=== PATIENT | female | born 1990 | race Caucasian/White ===

== ENCOUNTER 2021-09-23 08:32 | Inpatient (IN) | payer OTHER ==
[2021-09-25] MEDS ORDERED: LIDOCAINE 0.5% (PF) 5 MG/ML (50 ML SDV) SQ PRN (06:31)
[2021-09-25] MEDS ORDERED: TERBUTALINE 1 MG/ML VIAL SQ PRN (06:31)
[2021-09-25] MEDS ORDERED: CARBOPROST TROMETHAMINE 250 MCG/ML 1 ML AMP IM PRN (06:31)
[2021-09-25] MEDS ORDERED: OXYTOCIN 10 UNIT/ML 1 ML VIAL IM PRN (06:31)
[2021-09-25] MEDS ORDERED: METHYLERGONOVINE 0.2 MG/ML 1 ML AMP IM PRN (06:31)
[2021-09-25] MEDS ORDERED: OXYTOCIN 30 UNITS/500 ML NS 30 UNIT in SALINE 1 500ML.BAG IV SCH ×2 (06:45→15:45)
[2021-09-25] MEDS ORDERED: LACTATED RINGERS 1,000 ML IV SCH (06:45)
[2021-09-25] MEDS: LACTATED RINGERS 1,000 ML IV SCH ×2 (06:53→15:52)
[2021-09-25 07:45] LABS: Basophils % (A) 0 %; Eosinophils # (A) 0.1 k/uL (0-0.7); Eosinophils % (A) 1 %; HCT 38.3 % (34.0-46.0); HGB 12.9 gm/dL (11.4-16.0); Lymphocytes # (A) 3.1 k/uL (1.0-4.8); Lymphocytes % (A) 26 %; MCH 32.6 pg (25.0-35.0); MCHC 33.8 g/dL (31.0-37.0); MCV 96.5 fL (80.0-100.0); Mean Platelet Volume 8.7; Monocytes # (A) 0.5 k/uL (0-1.0); Monocytes % (A) 4 %; Neutrophils # (A) 7.7 k/uL (1.3-7.7); Neutrophils % (A) 66 %; Platelet Count 212 k/uL (150-450); RBC 3.97 m/uL (3.80-5.40); RDW 13.1 % (11.5-15.5); WBC 11.6 k/uL (3.8-10.6)
[2021-09-25] MEDS ORDERED: BUTORPHANOL 1 MG/ML 1 ML VIAL IV PRN (08:30)
--- NOTE | 2021-09-25 08:35 | P.HPOB ---
History of Present Illness H&P Date: 09/25/21 Chief Complaint: 40-5/7 weeks, induction of labor The patient is a 30-year-old 2 para 1001 who presents at 40-5/7 weeks as established by last menstrual period and confirmed by early ultrasound. She presents for postdates induction of labor with all signs reassuring. Her has been entirely uncomplicated. She presented to our office at approximately 26 weeks having had her early care in [facility] where she had been working. She has had no complications aside from jose juan coated at the end of August. testing since her due date and since: Have been reassuring. On labor and delivery, there is a category 1 heart rate tracing. Group B strep status is negative. Obstetrical history: 2 para 1001 with 1 term vaginal delivery without complications. Current statistics are listed in history present illness. EDC of 09/20/2021 was established by last menstrual period and confirmed by first trimester ultrasound. Laboratory workup demonstrates a blood type of O+ with a negative antibody screen. Rubella status is immune. The remainder of laboratory workup was within normal limits. Early Glucola as well as second trimester Glucola were within normal limits. Group B strep status is negative. Gynecologic history: Unremarkable with no history of any infections to include STDs. Review of Systems Review of systems is confined to history of present illness. Past Medical History Past Medical History: No Reported History History of Any Multi-Drug Resistant Organisms: None Reported Additional Past Surgical History / Comment(s): [place] teeth Past Anesthesia/Blood Transfusion Reactions: No Reported Reaction Past Psychological History: No Psychological Hx Reported Smoking Status: Never smoker Past Alcohol Use History: None Reported Past Drug Use History: None Reported - Past Family History Mother Additional Family Medical History / Comment(s): VonWillbran syndrome cousin Medications and Allergies Home Medications Medication Instructions Recorded Confirmed Type No Known Home Medications 09/25/21 09/25/21 History Allergies Allergy/AdvReac Type Severity Reaction Status Date / Time No Known Allergies Allergy Verified 09/25/21 06:31 Exam Vital Signs Temp Pulse Resp BP Pulse Ox 09/25/21 06:37 96.7 F L 90 16 127/75 98 Intake and Output 09/24/21 09/25/21 09/25/21 22:59 06:59 14:59 Other: Weight 92.079 kg In general, this a well-developed, well-nourished white female in no acute distress. Her heart has a regular rhythm and rate without murmur. Her lungs are clear to auscultation bilaterally in all [place]. Her abdomen is gravid, nondistended, has normal active bowel sounds, soft, nontender, and without any palpable masses aside from uterine fundus. Her extremities are without any c yanosis, clubbing, or edema and are nontender to palpation bilaterally. Digital cervical examination on straights her sugars to be 3 cm dilated, 70% effaced, the vertex in presentation at -1 station. Artificial rupture of membranes is carried out demonstrating clear fluid. Results Result Diagrams: 09/25/21 06:53 Abnormal Lab Results - Last 24 Hours (Table) 09/25/21 Range/Units 06:53 WBC 11.6 H (3.8-10.6) k/uL Assessment and Plan (1) Post-dates Current Visit: Yes Status: Acute Code(s): O48.0 - POST-TERM SNOMED Code(s): 13500922 Plan: The patient is admitted for Pitocin induction of labor which has been started. She has undergone artificial rupture of membranes and she will have close maternal and surveillance and expectant management will be practiced. She is a good candidate for either IV or epidural analgesia, whichever she may choose.
[2021-09-25] MEDS ORDERED: ROPIVACAINE 100 MG, fentaNYL (PF). 200 MCG in SODIUM CHLORIDE 0.9% 76 ML EPIDURAL ONE (12:13)
[2021-09-25] MEDS ORDERED: diphenhydrAMINE 25 MG CAP PO PRN (15:39)
[2021-09-25] MEDS ORDERED: diphenhydrAMINE 50 MG/ML 1 ML VIAL IVP PRN ×2 (15:39)
[2021-09-25] MEDS ORDERED: HYDROcodone/APAP 7.5-325MG 1 EACH TAB PO PRN (15:39)
[2021-09-25] MEDS ORDERED: LANOLIN CREAM 5 GM TUBE TOPICAL PRN (15:39)
[2021-09-25] MEDS ORDERED: diphenhydrAMINE 50 MG CAP PO PRN (15:39)
[2021-09-25] MEDS ORDERED: ZOLPIDEM 5 MG TAB PO PRN (15:39)
[2021-09-25] MEDS ORDERED: HYDROCORTISONE 2.5% RECTAL CREAM 30 GM TUBE RECTAL PRN (15:39)
[2021-09-25] MEDS ORDERED: BENZOCAINE/MENTHOL SPRAY 1 GM/SPRAY AEROSOL TOPICAL PRN (15:39)
[2021-09-25] MEDS ORDERED: HYDROcodone/APAP 5-325MG 1 EACH TAB PO PRN (15:39)
[2021-09-25] MEDS ORDERED: SIMETHICONE 80 MG CHEWABLE PO PRN (15:39)
--- NOTE | 2021-09-25 15:43 | P.PROBDLV ---
Vaginal Delivery Note - . Vaginal Delivery Note: The patient is a 30-year-old 2 para 1001 admitted at 40-5/7 weeks by good dating parameters. She is admitted for postdates induction of labor with all signs reassuring, category 1 heart rate tracing. Her has been uncomplicated though the first portion of it until approximately 26 weeks was under the care of in [facility] where she has been working. Her was otherwise uncomplicated though she did contract Covid in August. Anten atal testing has been reassuring since then and following her due date. On labor and delivery, she had Pitocin started followed by artificial rupture of membranes for clear fluid. She made progress to the active phase of labor and had an epidural catheter placed for analgesia. She then progressed fairly quickly through the active phase of labor to complete and pushed over the course of approximately 1 hour to a normal spontaneous vaginal delivery of a viable 9 lbs. 0 oz. baby boy with Apgars of 9 at 1 minute and 10 at 5 minutes delivered in the right occiput anterior position. The placenta was delivered spontaneously, intact, and grossly normal with a grossly normal three-vessel cord inserted approximate 2 cm from the margin of the placental disc. There was a partial third-degree laceration with a fracture of the anterior portion of the capsule of the internal anal sphincter which was repaired in standard fashion. The sphincter was repaired with interrupted [id number] stitches of 2-0 Vicryl and the remainder of the repair performed in standard fashion using 3-0 chromic catgut without difficulty. Estimated blood loss for the case was approximate 300 mL. There were no complications. All sponge, instrument, and needle counts were correct. Both mother and infant are resting comfortably in recovery.
[2021-09-25] MEDS: SENNOSIDES-DOCUSATE SODIUM 1 EACH TAB PO SCH (20:10)
[2021-09-25] MEDS: ACETAMINOPHEN TAB 325 MG TAB PO PRN (20:10)
[2021-09-25] MEDS: IBUPROFEN 600 MG TAB PO PRN (22:36)
[2021-09-26] MEDS: ACETAMINOPHEN TAB 325 MG TAB PO PRN ×2 (03:28→11:30)
[2021-09-26] MEDS: SENNOSIDES-DOCUSATE SODIUM 1 EACH TAB PO SCH (07:59)
[2021-09-26] MEDS: IBUPROFEN 600 MG TAB PO PRN ×2 (07:59→16:05)
[2021-09-26 08:22] LABS: Basophils % (A) 0 %; Eosinophils # (A) 0.1 k/uL (0-0.7); Eosinophils % (A) 1 %; HCT 36.8 % (34.0-46.0); HGB 12.3 gm/dL (11.4-16.0); Lymphocytes # (A) 2.5 k/uL (1.0-4.8); Lymphocytes % (A) 20 %; MCH 32.5 pg (25.0-35.0); MCHC 33.4 g/dL (31.0-37.0); MCV 97.5 fL (80.0-100.0); Monocytes # (A) 0.6 k/uL (0-1.0); Monocytes % (A) 4 %; Neutrophils # (A) 9.2 k/uL (1.3-7.7); Neutrophils % (A) 73 %; Platelet Count 204 k/uL (150-450); RBC 3.78 m/uL (3.80-5.40); WBC 12.6 k/uL (3.8-10.6)
--- NOTE | 2021-09-26 08:43 | P.DS ---
Providers Date of admission: 09/25/21 06:26 Expected date of discharge: 09/26/21 Attending physician: Sim Albert Primary care physician: Stated None - Discharge Diagnosis(es) (1) Post-dates Current Visit: Yes Status: Acute (2) Normal spontaneous vaginal delivery Current Visit: Yes Status: Acute Hospital Course: The patient is a 30-year-old 2 para 1001 admitted at 40-5/7 weeks by good dating parameters perches admitted for postdates induction of labor with all signs reassuring. Her was uncomplicated and group B strep status is negative. On labor and delivery, she had Pitocin started followed by artificial rupture of membranes. She had an epidural catheter placed at the onset of the active phase of labor. She made fairly rapid progress to the active phase of labor to complete and then pushed to a normal spontaneous vaginal delivery of a viable 9 lbs. 0 oz. baby boy with Apgars of 9 at 1 minute and 10 at 5 minutes. Her course was unremarkable with vital signs being stable and her temperature was afebrile throughout. She was deemed stable for discharge on day 1 and was discharged home to follow-up in the office in 6 weeks' time routinely. Discharge instructions included calling for any significantly increased bleeding or foul-smelling lochia, significantly increased fever or abdominal pain, perineal complaints, breast complaints, or anything else that concerned her. She was additionally instructed to have no thing in the vagina for at least 6 weeks time to include intercourse. She understood her instructions and agrees to follow up as noted above. Discharge medications included continued vitamins as she has opted to breast-feed as well as [id number]-[id number] analgesic pain medications. Maternal blood type is O+ and rubella status is immune. Procedures: #1. Pitocin induction #2. Artificial rupture of membranes #3. Epidural analgesia #4. Normal spontaneous vaginal delivery #5. Repair of perineal laceration Patient Condition at Discharge: Stable Plan - Discharge Summary New Discharge Prescriptions: No Action No Known Home Medications Discharge Medication List No Known Home Medications 09/25/21 [History] Follow up Appointment(s)/Referral(s): Sim Albert MD [STAFF PHYSICIAN] - 6 Weeks Discharge Disposition: HOME SELF-CARE
[2021-09-26 08:51] VITALS: RESP 18
[2021-09-26 17:16] VITALS: BP 108/65; PULSE 80; TEMP 98.2
== END 2021-09-26 16:20 | disposition home or self-care (01) | DRG 768 ==
LOC: 4FBP 09-25 06:26
PROVIDERS: ADMIT Obstetrics & Gynecology; ATTEND Obstetrics & Gynecology
PROC: 10E0XZZ Delivery of Products of Conception, External Approach (ICD-10-PCS; principal; 2021-09-25)
PROC: 0DQR0ZZ Repair Anal Sphincter, Open Approach (ICD-10-PCS; 2021-09-25)
PROC: 0KQM0ZZ Repair Perineum Muscle, Open Approach (ICD-10-PCS; 2021-09-25)
PROC: 4A0HXCZ Measurement of Products of Conception, Cardiac Rate, External Approach (ICD-10-PCS; 2021-09-25)
PROC: 3E033VJ Introduction of Other Hormone into Peripheral Vein, Percutaneous Approach (ICD-10-PCS; 2021-09-25)
PROC: 10907ZC Drainage of Amniotic Fluid, Therapeutic from Products of Conception, Via Natural or Artificial Opening (ICD-10-PCS; 2021-09-25)
DX: O48.0 Post-term pregnancy (principal); Z37.0 Single live birth; O70.20 Third degree perineal laceration during delivery, unspecified; Z3A.40 40 weeks gestation of pregnancy; Z86.16 Personal history of COVID-19
CPT/HCPCS: 85025; 86850; 86900; 86901

== ENCOUNTER 2022-03-25 09:53 | Emergency (ER) | payer OTHER ==
[2022-03-25 10:02] VITALS: BP 116/77; PULSE 81; RESP 18; TEMP 97.7
--- NOTE | 2022-03-25 10:44 | ED ---
Skin/Abscess/FB HPI - General Chief complaint: Skin/Abscess/Foreign Body Stated complaint: Skin Issues Time Seen by Provider: 03/25/22 10:14 Source: patient Mode of arrival: ambulatory Limitations: no limitations - History of Present Illness Initial comments: Patient is a 31-year-old female who presents to the emergency department for evaluation of rash. [place] a rash on the bottom of her legs. Patient states she went to the urgent care on 03/20 who gave her a steroid shot and sent her home with prednisone 30 mg daily for contact dermatitis. Patient states she isn taking the prednisone as directed however the rash is spreading. States the rash is now on her abdomen, back, and arms. States the rash is itchy but not painful. Has been using calamine lotion for the itching. Patient does not recall being bit by any insects. Denies fever, chills, throat swelling, throat pain, shortness of eliazar th, and other concerns. - Related Data Previous Rx's Medication Instructions Recorded predniSONE 30 mg PO DAILY 4 Days #12 tab 03/25/22 predniSONE 50 mg PO DAILY 4 Days #4 tab 03/25/22 predniSONE [Deltasone] 20 mg PO DAILY 4 Days #4 tab 03/25/22 predniSONE [Deltasone] 40 mg PO DAILY 4 Days #8 tab 03/25/22 predniSONE [Deltasone] 60 mg PO DAILY 4 Days #12 tab 03/25/22 Allergies Allergy/AdvReac Type Severity Reaction Status Date / Time No Known Allergies Allergy Verified 03/25/22 10:01 Review of Systems ROS Statement: Those systems with pertinent positive or pertinent negative responses have been documented in the HPI. ROS Other: All systems not noted in ROS Statement are negative. Past Medical History Past Medical History: No Reported History History of Any Multi-Drug Resistant Organisms: None Reported Additional Past Surgical History / Comment(s): [place] teeth Past Anesthesia/Blood Transfusion Reactions: No Reported Reaction Past Psychological History: No Psychological Hx Reported Smoking Status: Never smoker Past Alcohol Use History: None Reported Past Drug Use History: None Reported - Past Family History Mother Additional Family Medical History / Comment(s): VonWillbran syndrome cousin General Exam Limitations: no limitations General appearance: alert, in no apparent distress Head exam: Present: atraumatic, normocephalic, normal inspection Eye exam: Present: normal appearance, PERRL, EOMI. Absent: scleral icterus, conjunctival injection, periorbital swelling Neck exam: Present: normal inspection, full ROM. Absent: tenderness Respiratory exam: Present: normal lung sounds bilaterally. Absent: respiratory distress, wheezes, rales, rhonchi, stridor Cardiovascular Exam: Present: regular rate, normal rhythm, normal heart sounds. Absent: systolic murmur, diastolic murmur, rubs, gallop, clicks Neurological exam: Present: alert, oriented X3, CN II-XII intact Psychiatric exam: Present: normal affect, normal mood Skin exam: Present: warm, dry, intact, rash (erythematous plaques and patches over lower bilateral legs, abdomen, back, chest, and to a lesser extent the arms) Course Vital Signs 03/25/22 09:57 Temperature 97.7 F Pulse Rate 81 Respiratory 18 Rate Blood Pressure 116/77 O2 Sat by Pulse 98 Oximetry Medical Decision Making - Medical Decision Making This is a 31-year-old female presents for evaluation of rash. Thorough history and examination were performed. Patient is well-appearing. She is afebrile. There are several erythematous plaques and patches over the lower bilateral legs, abdomen, back, chest, and to a lesser extent, bilateral arms. This appears to be a contact dermatitis of unknown origin. Patient is on prednisone now however I do not think the dose is sufficient enough. Patient will be sent home with a long prednisone taper. This was discussed in detail. Patient is instructed to stop her original prednisone given by urgent care. Patient to take Benadryl and use calamine lotion for symptom. Return parameters discussed. Patient verbalizes understanding and is agreeable to this plan. Dr. Rosales is my attending. Disposition Clinical Impression: Contact dermatitis Disposition: HOME SELF-CARE Condition: Poor Instructions (If sedation given, give patient instructions): Contact Dermatitis (ED) Additional Instructions: Please take medication as directed. You will take 60 mg for 4 days, then 50 mg for 4 days, then 40 mg for 4 days, then 30 mg for 4 days, then 20 mg for 4 days. Continue calamine lotion and take Benadryl for itchiness. Follow-up with primary care provider in one to 2 days. Return to the emergency department if you experience new, concerning, or worsening symptoms. Prescriptions: predniSONE [Deltasone] 40 mg PO DAILY 4 Days #8 tab predniSONE [Deltasone] 20 mg PO DAILY 4 Days #4 tab predniSONE [Deltasone] 60 mg PO DAILY 4 Days #12 tab predniSONE 30 mg PO DAILY 4 Days #12 tab predniSONE 50 mg PO DAILY 4 Days #4 tab Is patient prescribed a controlled substance at d/c from ED?: No Referrals: None,Stated [Primary Care Provider] - 1-2 days Decision Time: 10:44
== END 2022-03-25 10:59 | disposition home or self-care (01) ==
LOC: EC 09:53
DX: L25.9 Unspecified contact dermatitis, unspecified cause (principal)
CPT/HCPCS: 99282

== ENCOUNTER 2023-10-13 06:15 | Inpatient (IN) | payer OTHER ==
[2023-10-13] MEDS ORDERED: TRANEXAMIC 1,000 MG/100ML-NACL 1,000 MG in EMPTY BAG 1 BAG IV PRN (07:05)
[2023-10-13] MEDS ORDERED: CARBOPROST TROMETHAMINE 250 MCG/ML 1 ML AMP IM PRN (07:05)
[2023-10-13] MEDS ORDERED: TERBUTALINE 1 MG/ML VIAL SQ PRN (07:05)
[2023-10-13] MEDS ORDERED: LIDOCAINE 0.5% (PF) 5 MG/ML (50 ML SDV) SQ PRN (07:05)
[2023-10-13] MEDS ORDERED: METHYLERGONOVINE 0.2 MG/ML 1 ML AMP IM PRN (07:05)
[2023-10-13] MEDS ORDERED: miSOPROStoL 200 MCG TAB PO PRN (07:05)
[2023-10-13] MEDS ORDERED: OXYTOCIN 10 UNIT/ML 1 ML VIAL IM PRN (07:05)
[2023-10-13] MEDS ORDERED: PENICILLIN G POTASSIUM 5,000,000 UNIT in DEXTROSE 5% IN WATER 100 ML IVPB STA ×2 (07:12)
[2023-10-13] MEDS ORDERED: OXYTOCIN 30 UNITS/500 ML NS 30 UNIT in SALINE 1 500ML.BAG IV SCH ×2 (07:15→13:30)
[2023-10-13] MEDS: LACTATED RINGERS 1,000 ML IV SCH ×2 (07:17→10:05)
[2023-10-13 07:29] LABS: Basophils # (A) 0.1 k/uL (0-0.2); Basophils % (A) 1 %; Eosinophils % (A) 0 %; HCT 38.4 % (34.0-46.0); HGB 12.9 gm/dL (11.4-16.0); Lymphocytes % (A) 26 %; MCH 31.2 pg (25.0-35.0); MCHC 33.6 g/dL (31.0-37.0); MCV 92.9 fL (80.0-100.0); Mean Platelet Volume 8.9; Monocytes # (A) 0.5 k/uL (0-1.0); Monocytes % (A) 4 %; Neutrophils # (A) 7.8 k/uL (1.3-7.7); Neutrophils % (A) 67 %; Platelet Count 213 k/uL (150-450); RBC 4.13 m/uL (3.80-5.40); RDW 13.4 % (11.5-15.5); WBC 11.6 k/uL (3.8-10.6)
[2023-10-13] MEDS ORDERED: NALBUPHINE 10 MG/ML (10 ML MDV) IV PRN (08:47)
--- NOTE | 2023-10-13 08:51 | P.HPOB ---
History of Present Illness H&P Date: 10/13/23 Chief Complaint: 39+ weeks, induction The patient is a 32-year-old 3 para 2001 who presents the hospital at 39+ weeks as established by last menstrual period and confirmed bilateral week ultrasound. She presents for elective induction of labor with all signs reassur ing, category 1 heart rate tracing. Her has been entirely uncomplicated though she is group B strep positive. Obstetrical history: 3 para 2001 with 2 term vaginal deliveries. Current statistics are listed in history of present illness. EDC of 10/17/2023 was established by last menstrual period and confirmed by an 11 week ultrasound. Laboratory workup demonstrates a blood type of O+ with a negative antibody screen. Rubella status is immune. The remainder of laboratory workup was within normal limits. Early Glucola as well as second trimester Glucola wer e within normal limits. Group B strep status is positive. Gynecologic history: Unremarkable with no history of any infections to include STDs. Review of Systems Review of systems is confined to history of present illness. Past Medical History Past Medical History: No Reported History History of Any Multi-Drug Resistant Organisms: None Reported Additional Past Surgical History / Comment(s): [place] teeth Past Anesthesia/Blood Transfusion Reactions: No Reported Reaction Past Psychological History: No Psychological Hx Reported Smoking Status: Never smoker Past Alcohol Use History: None Reported Past Drug Use History: None Reported - Past Family History Mother History Unknown: Yes Family Medical History: No Reported History Additional Family Medical History / Comment(s): VonWillbran syndrome cousin Medications and Allergies Home Medications Medication Instructions Recorded Confirmed Type Aspirin [[place] Aspirin EC] 81 mg PO 10/13/23 History Vit No.179/Iron/Folic 1 each PO 10/13/23 History [ Tablet] Allergies Allergy/AdvReac Type Severity Reaction Status Date / Time No Known Allergies Allergy Verified 10/13/23 07:02 Exam Vital Signs Temp Pulse Resp BP 10/13/23 07:01 97.0 F L 97 16 123/73 Intake and Output 10/12/23 10/13/23 10/13/23 22:59 06:59 14:59 Other: Weight 94.347 kg In general, this is a well-developed, well-nourished white female in no acute distress. Her heart has a regular rhythm and rate without murmur. Her lungs are clear to auscultation bilaterally in all [place]. Her abdomen is gravid, nondistended, has normal active bowel sounds, soft, nontender, and without any palpable masses aside from uterine fundus. Her extremities are without any cyanosis, clubbing, or significant edema and are nontender to palpation bilaterally. Digital cervical examination demonstrates her cervix to be 3 cm di lated, 70% effaced, with the vertex in presentation at -2 station. Artificial rupture of membranes is carried out demonstrating clear fluid. Results Result Diagrams: 10/13/23 07:05 Abnormal Lab Results - Last 24 Hours (Table) 10/13/23 Range/Units 07:05 WBC 11.6 H (3.8-10.6) k/uL Neutrophils # 7.8 H (1.3-7.7) k/uL Assessment and Plan (1) Group B streptococcal infection in Current Visit: Yes Status: Acute Code(s): O98.819 - OTH MATERNAL INFEC/PARASTC DISEASES COMP PREG, UNSP TRI; B95.1 - STREPTOCOCCUS, GROUP B, CAUSING DISEASES CLASSD ELSWHR SNOMED Code(s): 134354498 (2) Term Current Visit: Yes Status: Acute Code(s): Z34.90 - ENCNTR FOR SUPRVSN OF NOR MAL , UNSP, UNSP TRIMESTER SNOMED Code(s): 36207459 Plan: Antibiotic prophylaxis has been started along with Pitocin augmentation. The patient has undergone artificial rupture of membranes. She will have close maternal and surveillance and expectant management will be practiced. She is a good candidate for either IV or epidural analgesia, whichever she may choose.
[2023-10-13] MEDS ORDERED: fentaNYL (PF) 50 MCG/ML 5 ML AMP ONE (09:39)
[2023-10-13] MEDS ORDERED: ROPIVACAINE 5 MG/ML 30 ML VIAL ONE (09:39)
[2023-10-13] MEDS ORDERED: SODIUM CHLORIDE 0.9% 250 ML BAG ONE (09:39)
[2023-10-13] MEDS ORDERED: PENICILLIN G POTASSIUM 2,500,000 UNIT in DEXTROSE 5% IN WATER 100 ML IVPB SCH ×2 (11:30)
[2023-10-13] MEDS ORDERED: LANOLIN CREAM 5 GM TUBE TOPICAL PRN (13:19)
[2023-10-13] MEDS ORDERED: HYDROcodone/APAP 5-325MG 1 EACH TAB PO PRN (13:19)
[2023-10-13] MEDS ORDERED: diphenhydrAMINE 25 MG CAP PO PRN (13:19)
[2023-10-13] MEDS ORDERED: diphenhydrAMINE 50 MG/ML 1 ML VIAL IVP PRN ×2 (13:19)
[2023-10-13] MEDS ORDERED: ZOLPIDEM 5 MG TAB PO PRN (13:19)
[2023-10-13] MEDS ORDERED: HYDROcodone/APAP 7.5-325MG 1 EACH TAB PO PRN (13:19)
[2023-10-13] MEDS ORDERED: SIMETHICONE 80 MG CHEWABLE PO PRN (13:19)
[2023-10-13] MEDS ORDERED: HYDROCORTISONE 2.5% RECTAL CREAM 30 GM TUBE RECTAL PRN (13:19)
[2023-10-13] MEDS ORDERED: diphenhydrAMINE 50 MG CAP PO PRN (13:19)
[2023-10-13] MEDS ORDERED: BENZOCAINE/MENTHOL SPRAY 1 GM/SPRAY AEROSOL TOPICAL PRN (13:19)
--- NOTE | 2023-10-13 13:25 | P.PROBDLV ---
Vaginal Delivery Note - . Vaginal Delivery Note: The patient is a 32-year-old 3 para 2001 admitted at 39-3/7 weeks by good dating parameters. She is admitted for elective induction with all signs reassuring, category 1 heart rate tracing. Her has been entirely uncomplicated and group B strep status is positive. She had antibiotic prophylaxis started along with Pitocin augmentation. She underwent artificial rupture of membranes for clear fluid. She had an epidural catheter placed at the onset of the active phase of labor. She then progressed quickly through the active phase of labor to complete and +2 station. She pushed over the course of 1 contraction to a normal spontaneous vaginal delivery of a viable 8 lbs. 9 oz. baby girl with Apgars of 9 at 1 minute and 9 at 5 minutes delivered in the direct occiput anterior position. The placenta was delivered spontaneously, intact, and grossly normal with a grossly normal, centrally inserted three- vessel cord. There was a small second-degree midline perineal laceration over the site of previous lacerations which was repaired in standard fashion using 3- 0 chromic catgut without difficulty. Estimated blood loss for the case was approximately 200 mL. There were no complications. All sponge, instrument, and needle counts were correct. Both mother and infant are resting comfortably in recovery.
[2023-10-13] MEDS: SENNOSIDES-DOCUSATE SODIUM 1 EACH TAB PO SCH (19:48)
[2023-10-13] MEDS: IBUPROFEN 600 MG TAB PO PRN (20:15)
[2023-10-13] MEDS: ACETAMINOPHEN TAB 325 MG TAB PO PRN (23:53)
[2023-10-14] MEDS: IBUPROFEN 600 MG TAB PO PRN ×2 (06:23→12:25)
[2023-10-14 06:29] LABS: Basophils % (A) 0 %; Eosinophils # (A) 0.1 k/uL (0-0.7); Eosinophils % (A) 1 %; HCT 33.7 % (34.0-46.0); HGB 11.8 gm/dL (11.4-16.0); Lymphocytes # (A) 2.6 k/uL (1.0-4.8); Lymphocytes % (A) 28 %; MCH 33.1 pg (25.0-35.0); MCHC 35.1 g/dL (31.0-37.0); MCV 94.2 fL (80.0-100.0); Mean Platelet Volume 9.8; Monocytes # (A) 0.4 k/uL (0-1.0); Monocytes % (A) 4 %; Neutrophils # (A) 6.1 k/uL (1.3-7.7); Neutrophils % (A) 65 %; Platelet Count 191 k/uL (150-450); RBC 3.57 m/uL (3.80-5.40); RDW 12.9 % (11.5-15.5); WBC 9.4 k/uL (3.8-10.6)
[2023-10-14 08:18] VITALS: TEMP 98.6
[2023-10-14] MEDS: ACETAMINOPHEN TAB 325 MG TAB PO PRN (08:25)
[2023-10-14] MEDS: SENNOSIDES-DOCUSATE SODIUM 1 EACH TAB PO SCH (08:25)
--- NOTE | 2023-10-14 08:39 | P.DS ---
Providers Date of admission: 10/13/23 06:47 Expected date of discharge: 10/14/23 Attending physician: Sim Albert Primary care physician: Stated None - Discharge Diagnosis(es) (1) Group B streptococcal infection in Current Visit: Yes Status: Acute (2) Term Current Visit: Yes Status: Acute (3) Normal spontaneous vaginal delivery Current Visit: Yes Status: Acute Hospital Course: The patient is a 32-year-old 3 para 2001 presented to the hospital 39- 3/7 weeks by good dating parameters for elective induction with all signs reassuring, category 1 heart rate tracing. Her was uncomplicated and group B strep status was positive. On labor and delivery, she had antibody prophylaxis started along with Pitocin augmentation. She underwent artificial rupture of membranes for clear fluid. An epidural catheter was placed at the onset of the active phase of labor. She made rapid progress through the active phase of labor to complete and pushed over the course of 1 contraction to a normal spontaneous vaginal delivery of a viable 8 lbs. 9 oz. baby girl with Apgars of 9 at 1 minute and 9 at 5 minutes. Her course was unremarkable with vital signs remaining stable and her temperature was afebrile throughout. She was deemed stable for discharge on day #1 and was discharged home to follow-up in the office in 6 weeks' time routinely. Discharge instructions included calling for any significantly increased bleeding or foul-smelling lochia, significantly increased fever or abdominal pain, perineal complaints, breast complaints, or anything else that concerned her. She was additionally instructed to have nothing in the vagina for at least 6 weeks time to include intercourse. She understood her instructions and agrees to follow up as noted above. Discharge medications included continued vitamins as she has opted to breast-feed. She was otherwise to take duxn-vqv-aylwfol analgesic pain medications as needed. Maternal blood type is O+ and rubella status is immune. Procedures: #1. Antibiotic prophylaxis #2. Pitocin augmentation #3. Artificial rupture of membranes #4. Epidural analgesia #5. Normal spontaneous vaginal delivery #. Repair of perineal laceration Patient Condition at Discharge: Stable Plan - Discharge Summary New Discharge Prescriptions: No Action Vit No.179/Iron/Folic [ Tablet] 1 each PO Aspirin [[place] Aspirin EC] 81 mg PO Discharge Medication List Aspirin [[place] Aspirin EC] 81 mg PO 10/13/23 [History] Vit No.179/Iron/Folic [ Tablet] 1 each PO 10/13/23 [History] Follow up Appointment(s)/Referral(s): Sim Albert MD [STAFF PHYSICIAN] - 6 Weeks Discharge Disposition: HOME SELF-CARE
[2023-10-14 12:13] VITALS: BP 139/89; PULSE 73; RESP 17
== END 2023-10-14 14:30 | disposition home or self-care (01) | DRG 807 ==
LOC: 4FBP 06:47
PROVIDERS: ADMIT Obstetrics & Gynecology; ATTEND Obstetrics & Gynecology
PROC: 0KQM0ZZ Repair Perineum Muscle, Open Approach (ICD-10-PCS; principal; 2023-10-13)
PROC: 10E0XZZ Delivery of Products of Conception, External Approach (ICD-10-PCS; principal; 2023-10-13)
PROC: 3E033VJ Introduction of Other Hormone into Peripheral Vein, Percutaneous Approach (ICD-10-PCS; principal; 2023-10-13)
PROC: 10907ZC Drainage of Amniotic Fluid, Therapeutic from Products of Conception, Via Natural or Artificial Opening (ICD-10-PCS; principal; 2023-10-13)
DX: O98.82 Other maternal infectious and parasitic diseases complicating childbirth (principal); Z37.0 Single live birth; O70.1 Second degree perineal laceration during delivery; O99.824 Streptococcus B carrier state complicating childbirth; Z3A.39 39 weeks gestation of pregnancy; Z28.311 Partially vaccinated for COVID-19; Z28.21 Immunization not carried out because of patient refusal; Z79.82 Long term (current) use of aspirin
CPT/HCPCS: 85025; 86850; 86900; 86901